=== PATIENT | male | born 1990 | race Caucasian/White ===

== ENCOUNTER 2017-04-10 05:35 | Emergency (ER) | payer SELFPAY ==
[~2017-04-10] VITALS: Ht 180.3 cm; Wt 77.3 kg
[2017-04-10 06:57] LABS: APPEARANCE,URINE CLEAR (CLEAR); GLUCOSE, URINE (UA) NEGATIVE (NEGATIVE); KETONES,URINE NEGATIVE (NEGATIVE); LEUKOCYTE ESTERASE ,URINE NEGATIVE (NEGATIVE); OCCULT BLOOD,URINE NEGATIVE (NEGATIVE); PH,URINE 6.5 (5.0-8.0); PROTEIN,URINE NEGATIVE (NEGATIVE)
[2017-04-10 06:59] LABS: ADD UA MICROSCOPIC NO
[2017-04-10 08:03] VITALS: BP 131/80
== END 2017-04-10 08:05 | disposition home or self-care (01) ==
LOC: EMS 05:38
DX: F41.9 Anxiety disorder, unspecified (principal)
CPT/HCPCS: 93005; 99285